=== PATIENT | female | born 1990 | race American Indian/Alaskan Native ===

== ENCOUNTER 2024-06-17 06:11 | Emergency (ER) | payer BC ==
[2024-06-17] MEDS: Sodium Chloride 0.9% 1,000 ML IV STA (06:20)
[2024-06-17] MEDS: Ondansetron 4 MG/2 ML SDV ONE (06:26)
[2024-06-17] MEDS: Ondansetron 4 MG/2 ML SDV IVPUSH ONE (06:35)
[2024-06-17] MEDS: Sodium Chloride 0.9% 10 ML Syringe FLUSH PRN (06:35)
[2024-06-17] MEDS: droPERidol 2.5 MG/ML SDV IV ONE (06:35)
[2024-06-17 06:39] LABS: BASOPHILS ABSOLUTE AUTO 0.1 K/mm3 (0.0-0.2); BASOPHILS PERCENT AUTO 0.3 % (0.0-1.0); EOSINOPHILS ABSOLUTE AUTO 0.1 K/mm3 (0.0-0.4); EOSINOPHILS PERCENT AUTO 0.3 % (0.0-6.0); HEMATOCRIT 50.6 % (37.0-47.0); HEMOGLOBIN 17.4 gm/dl (12.0-16.0); IMMATURE GRAN ABSOLUTE AUTO 0.04 K/mm3 (0.00-0.05); IMMATURE GRAN PERCENT AUTO 0.3 % (0.0-0.4); LYMPHOCYTES ABSOLUTE AUTO 2.7 K/mm3 (1.0-4.8); LYMPHOCYTES PERCENT AUTO 18.1 % (24.0-44.0); MEAN CORPUSCULAR HEMOGLOBIN 28.8 pg (28.0-32.0); MEAN CORPUSCULAR HGB CONC 34.4 g/dl (32.0-36.0); MEAN CORPUSCULAR VOLUME 83.6 fl (83.0-99.0); MEAN PLATELET VOLUME 10.7 fl (9.4-12.3); MONOCYTES ABSOLUTE AUTO 0.6 K/mm3 (0.0-0.8); MONOCYTES PERCENT AUTO 4.2 % (0.0-8.0); NEUTROPHILS ABSOLUTE AUTO 11.6 K/mm3 (1.8-7.7); NEUTROPHILS PERCENT AUTO 76.8 % (41.0-71.0); PLATELET COUNT,PLT 386 K/mm3 (150-400); RED BLOOD CELL COUNT 6.05 M/mm3 (4.10-5.30); WHITE BLOOD CELL COUNT,WBC 15.11 K/mm3 (3.9-11.3)
[2024-06-17 07:01] LABS: A/G RATIO 1.1 (1-2); ALBUMIN 4.5 g/dl (3.4-5.0); BILIRUBIN TOTAL 0.8 mg/dL (0.2-1.0); EST CRCL DRUG DOSING (CG) 65.57 mL/min; PROTEIN TOTAL,TP 8.7 g/dl (6.4-8.2)
[2024-06-17 07:05] LABS: CALCIUM 9.3 mg/dL (8.5-10.1)
== END 2024-06-17 07:40 | disposition home or self-care (01) ==
LOC: JD.ED 06:11
DX: R11.2 Nausea with vomiting, unspecified (principal); Z79.899 Other long term (current) drug therapy
CPT/HCPCS: 36415; 80053; 83690; 84703; 85025; 96361; 96374; 96375; 99283; 99284-25; J1790; J2405; J7030

== ENCOUNTER 2024-06-19 13:36 | Emergency (ER) | payer BC ==
[2024-06-19 15:04] LABS: APPEARANCE,URINE CLEAR (Clear); BILIRUBIN,URINE 2+ (Negative); COLOR,URINE YELLOW (Yellow); GLUCOSE,URINE NEGATIVE (Negative); KETONES,URINE 2+ (Negative); LEUKOCYTE ESTERASE,URINE NEGATIVE (Negative); NITRITE,URINE NEGATIVE (Negative); OCCULT BLOOD,URINE NEGATIVE (Negative); PROTEIN,URINE 2+ (Negative)
[2024-06-19 15:06] LABS: BASOPHILS PERCENT AUTO 0.2 % (0.0-1.0); HEMATOCRIT 48.2 % (37.0-47.0); HEMOGLOBIN 16.5 gm/dl (12.0-16.0); IMMATURE GRAN ABSOLUTE AUTO 0.06 K/mm3 (0.00-0.05); IMMATURE GRAN PERCENT AUTO 0.4 % (0.0-0.4); LYMPHOCYTES ABSOLUTE AUTO 2.3 K/mm3 (1.0-4.8); LYMPHOCYTES PERCENT AUTO 15.2 % (24.0-44.0); MEAN CORPUSCULAR HEMOGLOBIN 28.7 pg (28.0-32.0); MEAN CORPUSCULAR HGB CONC 34.2 g/dl (32.0-36.0); MEAN CORPUSCULAR VOLUME 83.8 fl (83.0-99.0); MEAN PLATELET VOLUME 10.4 fl (9.4-12.3); MONOCYTES ABSOLUTE AUTO 0.7 K/mm3 (0.0-0.8); MONOCYTES PERCENT AUTO 4.7 % (0.0-8.0); NEUTROPHILS ABSOLUTE AUTO 11.9 K/mm3 (1.8-7.7); NEUTROPHILS PERCENT AUTO 79.5 % (41.0-71.0); PLATELET COUNT,PLT 339 K/mm3 (150-400); RED BLOOD CELL COUNT 5.75 M/mm3 (4.10-5.30)
[2024-06-19] MEDS: Sodium Chloride 0.9% 1,000 ML IV ONE (15:07)
[2024-06-19] MEDS: droPERidol 2.5 MG/ML SDV IV STA (15:07)
[2024-06-19 15:16] LABS: BARBITURATE SCREEN,URINE NEGATIVE (CUTOFF=200); BENZODIAZEPINES SCREEN,URINE NEGATIVE (CUTOFF=150); BUPRENORPHINE SCREEN,URINE NEGATIVE (CUTOFF=10); METHADONE SCREEN, URINE NEGATIVE (CUTOFF=200); METHAMPHETAMINES SCREEN, URINE NEGATIVE (CUTOFF=500); OXYCODONE SCREEN,URINE NEGATIVE (CUT0FF=100); THC SCREEN,URINE 20 NG/ML PRESUMPTIVE POSITIVE (CUTOFF=50)
[2024-06-19 15:20] LABS: AMPHETAMINES SCREEN, URINE NEGATIVE (CUTOFF=500)
[2024-06-19 15:24] LABS: BACTERIA,URINE FEW /hpf (FEW); EPITHELIAL CELLS,URINE 0-5 /hpf (0-5); MUCUS,URINE MANY /hpf (FEW); RBC,URINE 0-5 /hpf (0-5); WBC,URINE 0-5 /hpf (0-5)
[2024-06-19 15:43] LABS: A/G RATIO 1.1 (1-2); ALBUMIN 4.3 g/dl (3.4-5.0); ANION GAP 11.6 (5-15); BILIRUBIN TOTAL 1.1 mg/dL (0.2-1.0); BUN/CREATININE RATIO 18.9 (14-18); CALCIUM 8.9 mg/dL (8.5-10.1); CREATININE 0.9 mg/dL (0.55-1.02); EST CRCL DRUG DOSING (CG) 72.86 mL/min; MAGNESIUM 2.1 mg/dL (1.8-2.4); POTASSIUM,K 2.6 mEq/L (3.5-5.1); PROTEIN TOTAL,TP 8.1 g/dl (6.4-8.2)
[2024-06-19] MEDS: Ondansetron 4 MG/2 ML SDV IVPUSH ONE (15:56)
[2024-06-19] MEDS: Sodium Chloride 0.9% 10 ML Syringe FLUSH PRN (16:20)
[2024-06-19] MEDS: LORazepam 2 MG/ML SDV IVPUSH ONE ×2 (16:20→18:04)
[2024-06-19] MEDS: Potassium Chloride 10 MEQ in Premix Bag 1 BAG IV SCH (16:25)
[2024-06-19] MEDS: Sodium Chloride 0.9% 1,000 ML IV SCH (16:25)
[2024-06-19] MEDS: Famotidine 20 MG/2 ML SDV IVPUSH ONE (17:42)
[2024-06-19] MEDS: Aluminum Hydroxide/Magnesium Hydroxide/Simethicone Susp 30 ML Cup PO ONE (20:16)
[2024-06-19] MEDS: Potassium Chloride 20 MEQ Tab.ER PO ONE (21:02)
[2024-06-19] MEDS: Metoclopramide 10 MG/2 ML SDV IVPUSH ONE (21:04)
== END 2024-06-19 21:17 | disposition home or self-care (01) ==
LOC: JD.ED 13:36
DX: R11.2 Nausea with vomiting, unspecified (principal); E87.6 Hypokalemia; E11.9 Type 2 diabetes mellitus without complications; F17.210 Nicotine dependence, cigarettes, uncomplicated; Z79.84 Long term (current) use of oral hypoglycemic drugs; Z79.899 Other long term (current) drug therapy
CPT/HCPCS: 36415; 80053; 80306; 81001; 81025; 83735; 85025; 96361; 96365; 96366; 96375; 96376; 99284; A9270; J1790; J2060; J2405; J2765; J3480; J7030

== ENCOUNTER 2024-10-30 18:07 | Emergency (ER) | payer BC ==
[2024-10-30] MEDS ORDERED: Sodium Chloride 0.9% 10 ML Syringe FLUSH PRN (18:33)
[2024-10-30] MEDS: droPERidol 2.5 MG/ML SDV IV ONE (18:45)
[2024-10-30 18:58] LABS: BASOPHILS ABSOLUTE AUTO 0.0 K/mm3 (0.0-0.2); BASOPHILS PERCENT AUTO 0.3 % (0.0-1.0); EOSINOPHILS ABSOLUTE AUTO 0.0 K/mm3 (0.0-0.4); EOSINOPHILS PERCENT AUTO 0.1 % (0.0-6.0); IMMATURE GRAN ABSOLUTE AUTO 0.06 K/mm3 (0.00-0.05); IMMATURE GRAN PERCENT AUTO 0.4 % (0.0-0.4); LYMPHOCYTES ABSOLUTE AUTO 3.1 K/mm3 (1.0-4.8); LYMPHOCYTES PERCENT AUTO 19.6 % (24.0-44.0); MEAN PLATELET VOLUME 10.4 fl (9.4-12.3); MONOCYTES ABSOLUTE AUTO 0.8 K/mm3 (0.0-0.8); MONOCYTES PERCENT AUTO 5.1 % (0.0-8.0); NEUTROPHILS ABSOLUTE AUTO 11.6 K/mm3 (1.8-7.7); NEUTROPHILS PERCENT AUTO 74.5 % (41.0-71.0); NRBC ABSOLUTE 0.00 (0.00-0.02); NRBC PERCENT 0.0 % (0.0-0.2); PLATELET COUNT,PLT 331 K/mm3 (150-400); RED BLOOD CELL COUNT 4.98 M/mm3 (4.10-5.30); WHITE BLOOD CELL COUNT,WBC 15.60 K/mm3 (3.9-11.3)
[2024-10-30 19:16] LABS: INR 1.18
[2024-10-30 19:17] LABS: PTT,PARTIAL THROMBOPLSTIN TIME 24.0 SECONDS (21.7-31.4)
[2024-10-30 19:19] LABS: A/G RATIO 1.3 (1-2); ALANINE AMINOTRANSFERASE,ALT 36.0 U/L (14-59); ASPARTATE AMNIOTRANSFERASE,AST 27.0 U/L (15-37); BILIRUBIN TOTAL 1.2 mg/dL (0.2-1.0); BLOOD UREA NITROGEN,BUN 19.0 mg/dL (7-18); CARBON DIOXIDE,CO2 23.0 mEq/L (21-32); CHLORIDE,CL 97.0 mEq/L (98-107); CREATININE 0.9 mg/dL (0.55-1.02); EST CRCL DRUG DOSING (CG) 72.17 mL/min; ESTIMATED GFR 86.0 mL/min (>60); GLUCOSE RANDOM 163.0 mg/dL (70-99); POTASSIUM,K 3.3 mEq/L (3.5-5.1); PROTEIN TOTAL,TP 7.9 g/dl (6.4-8.2); SODIUM,NA 135.0 mEq/L (136-145)
[2024-10-30 19:26] LABS: LACTIC ACID 2.2 mmol/L (0.4-2.0)
[2024-10-30 19:54] LABS: APPEARANCE,URINE CLEAR (Clear); GLUCOSE,URINE 2+ (Negative); OCCULT BLOOD,URINE NEGATIVE (Negative)
[2024-10-30 20:02] LABS: SQUAMOUS EPITHELIAL CELLS,UR 0-5 /hpf (0-5)
[2024-10-30 20:03] LABS: BUPRENORPHINE SCREEN,URINE NEGATIVE (CUTOFF=10); METHADONE SCREEN, URINE NEGATIVE (CUTOFF=200); METHAMPHETAMINES SCREEN, URINE NEGATIVE (CUTOFF=500); OXYCODONE SCREEN,URINE NEGATIVE (CUT0FF=100); THC SCREEN,URINE 20 NG/ML PRESUMPTIVE POSITIVE (CUTOFF=50)
[2024-10-30 20:06] LABS: AMPHETAMINES SCREEN, URINE NEGATIVE (CUTOFF=500)
[2024-10-30] MEDS: LORazepam 2 MG/ML SDV IVPUSH ONE (20:19)
== END 2024-10-30 20:30 | disposition home or self-care (01) ==
LOC: JD.ED 18:07
DX: R11.2 Nausea with vomiting, unspecified (principal); Z79.899 Other long term (current) drug therapy; Z79.84 Long term (current) use of oral hypoglycemic drugs
CPT/HCPCS: 36415; 80053; 80306; 80307; 81001; 83605; 83690; 84703; 85025; 85610; 85730; 86140; 96361; 96374; 96375; 99284; J1790; J2060; J7030

== ENCOUNTER 2024-11-06 19:33 | Emergency (ER) | payer BC ==
[2024-11-06 20:18] LABS: BASOPHILS ABSOLUTE AUTO 0.1 K/mm3 (0.0-0.2); BASOPHILS PERCENT AUTO 0.4 % (0.0-1.0); EOSINOPHILS ABSOLUTE AUTO 0.0 K/mm3 (0.0-0.4); EOSINOPHILS PERCENT AUTO 0.0 % (0.0-6.0); IMMATURE GRAN ABSOLUTE AUTO 0.04 K/mm3 (0.00-0.05); IMMATURE GRAN PERCENT AUTO 0.3 % (0.0-0.4); LYMPHOCYTES ABSOLUTE AUTO 3.1 K/mm3 (1.0-4.8); LYMPHOCYTES PERCENT AUTO 22.1 % (24.0-44.0); MEAN PLATELET VOLUME 9.8 fl (9.4-12.3); MONOCYTES ABSOLUTE AUTO 0.9 K/mm3 (0.0-0.8); MONOCYTES PERCENT AUTO 6.4 % (0.0-8.0); NEUTROPHILS ABSOLUTE AUTO 9.7 K/mm3 (1.8-7.7); NEUTROPHILS PERCENT AUTO 70.8 % (41.0-71.0); NRBC ABSOLUTE 0.00 (0.00-0.02); NRBC PERCENT 0.0 % (0.0-0.2); PLATELET COUNT,PLT 314 K/mm3 (150-400); RED BLOOD CELL COUNT 4.80 M/mm3 (4.10-5.30); WHITE BLOOD CELL COUNT,WBC 13.77 K/mm3 (3.9-11.3)
[2024-11-06 20:40] LABS: A/G RATIO 1.2 (1-2); ALANINE AMINOTRANSFERASE,ALT 32.0 U/L (14-59); ASPARTATE AMNIOTRANSFERASE,AST 17.0 U/L (15-37); BILIRUBIN TOTAL 0.7 mg/dL (0.2-1.0); BLOOD UREA NITROGEN,BUN 20.0 mg/dL (7-18); CARBON DIOXIDE,CO2 32.0 mEq/L (21-32); CHLORIDE,CL 98.0 mEq/L (98-107); CREATININE 0.9 mg/dL (0.55-1.02); EST CRCL DRUG DOSING (CG) 72.17 mL/min; ESTIMATED GFR 86.0 mL/min (>60); GLUCOSE RANDOM 153.0 mg/dL (70-99); POTASSIUM,K 3.8 mEq/L (3.5-5.1); PROTEIN TOTAL,TP 7.3 g/dl (6.4-8.2); SODIUM,NA 136.0 mEq/L (136-145)
== END 2024-11-06 21:26 | disposition home or self-care (01) ==
LOC: JD.ED 19:33
DX: R11.2 Nausea with vomiting, unspecified (principal); K21.9 Gastro-esophageal reflux disease without esophagitis; E11.9 Type 2 diabetes mellitus without complications; Z79.899 Other long term (current) drug therapy; Z79.84 Long term (current) use of oral hypoglycemic drugs
CPT/HCPCS: 36415; 80053; 84703; 85025; 99283; 99284

== ENCOUNTER 2025-01-09 06:41 | Emergency (ER) | payer BC ==
[2025-01-09 07:37] LABS: APPEARANCE,URINE CLEAR (Clear); GLUCOSE,URINE NEGATIVE (Negative); OCCULT BLOOD,URINE NEGATIVE (Negative)
[2025-01-09 07:47] LABS: BUPRENORPHINE SCREEN,URINE NEGATIVE (CUTOFF=10); METHADONE SCREEN, URINE NEGATIVE (CUTOFF=200); METHAMPHETAMINES SCREEN, URINE NEGATIVE (CUTOFF=500); OXYCODONE SCREEN,URINE NEGATIVE (CUT0FF=100); THC SCREEN,URINE 20 NG/ML PRESUMPTIVE POSITIVE (CUTOFF=50)
[2025-01-09 07:50] LABS: BASOPHILS ABSOLUTE AUTO 0.0 K/mm3 (0.0-0.2); BASOPHILS PERCENT AUTO 0.3 % (0.0-1.0); EOSINOPHILS ABSOLUTE AUTO 0.0 K/mm3 (0.0-0.4); EOSINOPHILS PERCENT AUTO 0.0 % (0.0-6.0); IMMATURE GRAN ABSOLUTE AUTO 0.03 K/mm3 (0.00-0.05); IMMATURE GRAN PERCENT AUTO 0.3 % (0.0-0.4); LYMPHOCYTES ABSOLUTE AUTO 2.2 K/mm3 (1.0-4.8); LYMPHOCYTES PERCENT AUTO 18.8 % (24.0-44.0); MEAN PLATELET VOLUME 10.0 fl (9.4-12.3); MONOCYTES ABSOLUTE AUTO 0.9 K/mm3 (0.0-0.8); MONOCYTES PERCENT AUTO 7.8 % (0.0-8.0); NEUTROPHILS ABSOLUTE AUTO 8.5 K/mm3 (1.8-7.7); NEUTROPHILS PERCENT AUTO 72.8 % (41.0-71.0); NRBC ABSOLUTE 0.00 (0.00-0.02); NRBC PERCENT 0.0 % (0.0-0.2); PLATELET COUNT,PLT 337 K/mm3 (150-400); RED BLOOD CELL COUNT 4.93 M/mm3 (4.10-5.30); WHITE BLOOD CELL COUNT,WBC 11.69 K/mm3 (3.9-11.3)
[2025-01-09 07:52] LABS: AMPHETAMINES SCREEN, URINE NEGATIVE (CUTOFF=500)
[2025-01-09 08:23] LABS: A/G RATIO 1.1 (1-2); ALANINE AMINOTRANSFERASE,ALT 20.0 U/L (14-59); ASPARTATE AMNIOTRANSFERASE,AST 11.0 U/L (15-37); BILIRUBIN TOTAL 1.0 mg/dL (0.2-1.0); BLOOD UREA NITROGEN,BUN 22.0 mg/dL (7-18); CARBON DIOXIDE,CO2 30.0 mEq/L (21-32); CHLORIDE,CL 93.0 mEq/L (98-107); CREATININE 0.7 mg/dL (0.55-1.02); EST CRCL DRUG DOSING (CG) 92.79 mL/min; ESTIMATED GFR 116.0 mL/min (>60); GLUCOSE RANDOM 169.0 mg/dL (70-99); POTASSIUM,K 3.1 mEq/L (3.5-5.1); PROTEIN TOTAL,TP 7.9 g/dl (6.4-8.2); SODIUM,NA 133.0 mEq/L (136-145); TSH 0.774 uIU/mL (0.358-3.74)
[2025-01-09 08:32] LABS: ETHANOL BLOOD MEDICAL 0.0 gm% (0.00)
[2025-01-09] MEDS ORDERED: Potassium Chloride 20 MEQ Tab.ER PO ONE (09:26)
== END 2025-01-09 09:33 | disposition home or self-care (01) ==
LOC: JD.ED 06:41
DX: F41.0 Panic disorder [episodic paroxysmal anxiety] (principal); E78.00 Pure hypercholesterolemia, unspecified; I10 Essential (primary) hypertension; K21.9 Gastro-esophageal reflux disease without esophagitis; E11.9 Type 2 diabetes mellitus without complications; Z86.16 Personal history of COVID-19; Z87.891 Personal history of nicotine dependence; Z88.8 Allergy status to other drugs, medicaments and biological substances; Z79.899 Other long term (current) drug therapy; Z79.84 Long term (current) use of oral hypoglycemic drugs
CPT/HCPCS: 36415; 80053; 80143; 80179; 80306; 80307; 81001; 84443; 84703; 85025; 99283